=== PATIENT | female | born 1980 | race Caucasian/White ===

== ENCOUNTER 2018-03-07 16:22 | Emergency (ER) | payer SELFPAY ==
[~2018-03-07] VITALS: Ht 157.5 cm; Wt 52.3 kg
[2018-03-07 16:38] VITALS: BP 134/56
[2018-03-07] MEDS ORDERED: HYDROCORTISONE 1% 1.5 GM CREAM TP ONE (18:45)
== END 2018-03-07 19:46 | disposition home or self-care (01) ==
LOC: EMS 16:23
DX: L20.9 Atopic dermatitis, unspecified (principal)
CPT/HCPCS: 99283

== ENCOUNTER 2020-04-02 01:50 | Emergency (ER) | payer MEDICAID ==
[~2020-04-02] VITALS: Ht 157.5 cm; Wt 52.7 kg
[2020-04-02 01:53] VITALS: BP 133/88
== END 2020-04-02 04:19 | disposition home or self-care (01) ==
LOC: EMS 01:51
DX: S02.5XXA Fracture of tooth (traumatic), initial encounter for closed fracture (principal); X58.XXXA Exposure to other specified factors, initial encounter; Y93.89 Activity, other specified; Y92.89 Other specified places as the place of occurrence of the external cause; Y99.8 Other external cause status